=== PATIENT | female | born 1990 | race Caucasian/White ===

== ENCOUNTER 2016-04-29 21:21 | Emergency (ER) | payer SELFPAY ==
[~2016-04-29] VITALS: Ht 154.9 cm; Wt 61.5 kg
[~2016-04-29 21:21] MED LIST: CALCIUM500 M2 PO; CALCIUM500 M3 PO; COLACE100 MG PO; DAILY VITAMIN1 EAC8 PO; DEPO-PROVE150 MG/1 M IM; DEPO-PROVER150 MG/ML IM; DEPO-SUBQ104 MG/0.6 SC; FIORICET WI1 CAPSULE PO; FLEXERIL10 MG PO; FLEXERIL5 MG PO; IMITREX50 MG PO; INDOCIN25 MG PO; KEFLEX500 MG PO; LIDODERM 5% P1 PATCH TD; MEDROL DOSEPAK4 MG PO; MOBIC7.5 MG PO; MOTRIN800 MG PO; MUCINEX D ER T1 EACH PO; MULTIPLE VITAM1 EAC1 PO; MULTIVITAMIN1 EAC2 PO; NAPROSYN500 MG PO; NAPROXEN500 MG PO; NASONEX17 GM BOTH NARES; NORCO 5/3251 TABLET PO; PERCOCET 5/31 TABLET PO; PREDNISONE20 MG PO; PROMETHAZINE HC25 M1 PO; REGLAN10 MG PO; ULTRACET1 TABLET PO; ULTRAM50 MG PO; VALIUM5 MG PO; VALTREX50 MG/ML PO; ZOFRAN ODT4 MG PO; ZOFRAN4 MG PO
[2016-04-30 00:12] VITALS: BP 113/77
== END 2016-04-30 00:15 | disposition home or self-care (01) ==
LOC: EME → EDBD 21:21 → EME 04-30 00:15
DX: S06.0X1A Concussion with loss of consciousness of 30 minutes or less, initial encounter (principal); S16.1XXA Strain of muscle, fascia and tendon at neck level, initial encounter; M54.9 Dorsalgia, unspecified; Y08.89XA Assault by other specified means, initial encounter; Y07.410 Brother, perpetrator of maltreatment and neglect
CPT/HCPCS: 70450; 72125; 72128; 72131; 99281; 99285; J2270; J2405; J7030

== ENCOUNTER 2016-05-17 22:56 | Emergency (ER) | payer SELFPAY ==
[~2016-05-17] VITALS: Ht 167.6 cm; Wt 54.6 kg
[2016-05-18 00:45] LABS: QUANTITATIVE HCG < 4.0 MIU/ML
[2016-05-18 00:58] LABS: HEMATOCRIT 41.2 % (36.0-46.0); MCH 31.5 PG (29.0-34.0); MCHC 35.2 G/DL (30.0-36.0); MCV 89.6 FL (83-99); PLATELET COUNT 262 K/uL (156-360); RBC DIS.WIDTH-CV 12.4 % (11.8-14.6); RBC DIS.WIDTH-SD 39.8 % (39-53); WHITE BLOOD COUNT 8.4 K/uL (4.1-10.2)
[2016-05-18 01:00] LABS: CHLORIDE 105 mEq/L (99-109); POTASSIUM 3.8 mEq/L (3.7-5.4); SODIUM 137 mEq/L (136-147)
[2016-05-18 01:01] LABS: GLUCOSE 94 mg/dL (70-99)
[2016-05-18 01:03] LABS: ANION GAP 10 MEQ/L (2-14)
[2016-05-18 01:05] LABS: GFR ESTIMATE (CALCULATED) > 59 mL/min/
[2016-05-18 01:06] LABS: UREA NITROGEN (BUN) 15 mg/dL (9-23)
[2016-05-18 01:22] LABS: ADD MIUA? YES; BILIRUBIN NEGATIVE; BLOOD LARGE; COLOR YELLOW ((YELLOW)); GLUCOSE (STRIP) NEGATIVE; KETONES NEGATIVE; LEUKOCYTES MODERATE; NITRITE NEGATIVE; PROTEIN (STRIP) NEGATIVE; SPECIFIC GRAVITY 1.022 (1.000-1.030); UROBILINOGEN 0.2 MG/DL (0.2-1.0)
[2016-05-18 01:54] LABS: CASTS NONE SEEN /LPF; EPITHELIAL CELLS 4+; MUCUS NONE SEEN
[2016-05-18 01:55] LABS: BACTERIA 4+; CRYSTALS NONE SEEN; RED BLOOD CELLS 0-5 /HPF (0-5); UCUL ADDED? YES
[2016-05-18] MEDS ORDERED: PYRIDIUM100 MG PO (02:13)
[2016-05-18] MEDS ORDERED: NORCO 5/3251 TABLET PO (02:13)
[2016-05-18] MEDS ORDERED: CIPRO500 MG PO (02:13)
[2016-05-18 02:35] VITALS: BP 128/73
== END 2016-05-18 02:52 | disposition home or self-care (01) ==
LOC: EME 22:56
PROVIDERS: Emergency Medicine
DX: N30.01 Acute cystitis with hematuria (principal); M54.5 Low back pain
CPT/HCPCS: 74176; 80048; 81003; 84702; 85027; 87086; 99281; 99284

== ENCOUNTER 2016-06-27 12:29 | Emergency (ER) | payer SELFPAY ==
[~2016-06-27] VITALS: Ht 154.9 cm; Wt 55.5 kg
[~2016-06-27 12:29] MED LIST changes: +CIPRO500 MG PO; +PYRIDIUM100 MG PO
[2016-06-27 13:56] LABS: HEMATOCRIT 41.7 % (36.0-46.0); MCH 31.7 PG (29.0-34.0); MCHC 35.3 G/DL (30.0-36.0); MCV 90.1 FL (83-99); MEAN PLAT.VOLUME 10.1 uM^3 (9.5-12.4); PLATELET COUNT 246 K/uL (156-360); RBC DIS.WIDTH-CV 12.7 % (11.8-14.6); RBC DIS.WIDTH-SD 41.5 % (39-53); RED BLOOD COUNT 4.63 M/uL (3.80-5.20); WHITE BLOOD COUNT 7.5 K/uL (4.1-10.2)
[2016-06-27 14:09] LABS: CHLORIDE 109 mEq/L (99-109); SODIUM 139 mEq/L (136-147)
[2016-06-27 14:12] LABS: GLUCOSE 91 mg/dL (70-99)
[2016-06-27 14:13] LABS: ANION GAP 10 MEQ/L (2-14)
[2016-06-27 14:14] LABS: TOTAL BILIRUBIN 0.5 mg/dL (0.0-1.0)
[2016-06-27 14:15] LABS: ALKALINE PHOSPHATASE 46 IU/L (3-129); GFR ESTIMATE (CALCULATED) > 59 mL/min/
[2016-06-27 14:16] LABS: UREA NITROGEN (BUN) 15 mg/dL (9-23)
[2016-06-27 14:27] LABS: QUANTITATIVE HCG < 4.0 MIU/ML
[2016-06-27 14:57] LABS: LIPASE 14 U/L (1.0-51.0)
[2016-06-27 15:30] LABS: ADD MIUA? YES; BILIRUBIN NEGATIVE; BLOOD MODERATE; COLOR YELLOW ((YELLOW)); GLUCOSE (STRIP) NEGATIVE; KETONES 80; LEUKOCYTES NEGATIVE; NITRITE NEGATIVE; PROTEIN (STRIP) 30; SPECIFIC GRAVITY 1.038 (1.000-1.030); UROBILINOGEN 0.2 MG/DL (0.2-1.0)
[2016-06-27 15:35] LABS: BACTERIA RARE /HPF; EPITHELIAL CELLS 2+ /HPF; HYALINE CASTS 0-5 /LPF; MUCUS 4+ /LPF; RED BLOOD CELLS 0-5 /HPF (0-5); UCUL ADDED? NO; WHITE BLOOD CELLS 0-5 /HPF (0-5)
[2016-06-27] MEDS ORDERED: MOTRIN800 MG PO (18:30)
[2016-06-27] MEDS ORDERED: NORCO 7.5/321 TABLET PO (18:30)
[2016-06-27 19:00] VITALS: BP 126/76
== END 2016-06-27 19:01 | disposition home or self-care (01) ==
LOC: EME 12:29
DX: R10.2 Pelvic and perineal pain (principal); T21.12XA Burn of first degree of abdominal wall, initial encounter; X16.XXXA Contact with hot heating appliances, radiators and pipes, initial encounter; R30.0 Dysuria
CPT/HCPCS: 76856; 80053; 81003; 83690; 84702; 85027; 99281; 99284

== ENCOUNTER 2016-06-30 10:57 | Emergency (ER) | payer SELFPAY ==
[~2016-06-30] VITALS: Ht 154.9 cm; Wt 53.9 kg
[~2016-06-30 10:57] MED LIST changes: +NORCO 7.5/321 TABLET PO
[2016-06-30 11:37] LABS: HEMATOCRIT 42.9 % (36.0-46.0); MCH 31.3 PG (29.0-34.0); MCHC 34.3 G/DL (30.0-36.0); MCV 91.3 FL (83-99); MEAN PLAT.VOLUME 10.1 uM^3 (9.5-12.4); PLATELET COUNT 264 K/uL (156-360); RBC DIS.WIDTH-CV 12.3 % (11.8-14.6); RBC DIS.WIDTH-SD 41.3 % (39-53); WHITE BLOOD COUNT 9.5 K/uL (4.1-10.2)
[2016-06-30 11:45] LABS: CHLORIDE 108 mEq/L (99-109); POTASSIUM 3.8 mEq/L (3.7-5.4); SODIUM 141 mEq/L (136-147)
[2016-06-30 11:47] LABS: GLUCOSE 96 mg/dL (70-99)
[2016-06-30 11:49] LABS: ANION GAP 12 MEQ/L (2-14); TOTAL BILIRUBIN 0.4 mg/dL (0.0-1.0)
[2016-06-30 11:51] LABS: ALKALINE PHOSPHATASE 50 IU/L (3-129); GFR ESTIMATE (CALCULATED) > 59 mL/min/
[2016-06-30 11:52] LABS: UREA NITROGEN (BUN) 12 mg/dL (9-23)
[2016-06-30 12:01] LABS: QUANTITATIVE HCG < 4.0 MIU/ML
[2016-06-30] MEDS ORDERED: VALTREX1000 MG PO (12:54)
[2016-06-30 13:17] LABS: ADD MIUA? YES; BILIRUBIN NEGATIVE; BLOOD MODERATE; COLOR AMBER ((YELLOW)); GLUCOSE (STRIP) NEGATIVE; KETONES 5; LEUKOCYTES TRACE; NITRITE NEGATIVE; PROTEIN (STRIP) 100; SPECIFIC GRAVITY 1.035 (1.000-1.030); UROBILINOGEN 0.2 MG/DL (0.2-1.0)
[2016-06-30 14:02] LABS: BACTERIA 2+ /HPF; EPITHELIAL CELLS 2+ /HPF; MUCUS NONE SEEN /LPF; UCUL ADDED? YES
[2016-06-30] MEDS ORDERED: MACROBID100 MG PO (14:26)
[2016-06-30] MEDS ORDERED: PYRIDIUM100 MG PO (14:26)
[2016-06-30 14:33] VITALS: BP 118/66
[2016-06-30] MEDS ORDERED: BENTYL20 MG PO (14:46)
== END 2016-06-30 14:34 | disposition home or self-care (01) ==
LOC: EME 10:57
DX: N39.0 Urinary tract infection, site not specified (principal); R10.32 Left lower quadrant pain; R11.0 Nausea; R19.7 Diarrhea, unspecified
CPT/HCPCS: 74020; 80053; 81003; 84702; 85027; 87086; 99281; 99284

== ENCOUNTER 2016-07-14 15:00 | Emergency (ER) | payer SELFPAY ==
[~2016-07-14] VITALS: Ht 152.4 cm; Wt 54.5 kg
[~2016-07-14 15:00] MED LIST changes: +BENTYL20 MG PO; +MACROBID100 MG PO; +VALTREX1000 MG PO
[2016-07-14] MEDS ORDERED: ULTRAM50 MG PO (16:45)
[2016-07-14 16:58] VITALS: BP 124/83
== END 2016-07-14 16:58 | disposition home or self-care (01) ==
LOC: EME 15:00
DX: K08.89 Other specified disorders of teeth and supporting structures (principal)
CPT/HCPCS: 99281; 99284

== ENCOUNTER 2016-07-20 17:33 | Emergency (ER) | payer SELFPAY ==
[~2016-07-20] VITALS: Ht 154.9 cm; Wt 54.0 kg
[2016-07-20] MEDS ORDERED: ULTRAM50 MG PO (18:23)
[2016-07-20] MEDS ORDERED: NAPROSYN500 MG PO (18:23)
[2016-07-20 18:29] VITALS: BP 113/78
== END 2016-07-20 18:45 | disposition home or self-care (01) ==
LOC: EME 17:33
DX: K08.89 Other specified disorders of teeth and supporting structures (principal)
CPT/HCPCS: 99281; 99284

== ENCOUNTER 2016-11-08 11:29 | Emergency (ER) | payer SELFPAY ==
[~2016-11-08] VITALS: Ht 154.9 cm; Wt 52.8 kg
[2016-11-08] MEDS ORDERED: PREDNISONE20 MG PO (13:38)
[2016-11-08] MEDS ORDERED: FLEXERIL10 MG PO (15:12)
[2016-11-08 15:33] VITALS: BP 97/74
== END 2016-11-08 15:36 | disposition home or self-care (01) ==
LOC: EME 11:29
DX: M62.838 Other muscle spasm (principal)
CPT/HCPCS: 72040; 99281; 99284; J3360; J7512

== ENCOUNTER 2016-11-21 15:25 | Emergency (ER) | payer SELFPAY ==
[~2016-11-21] VITALS: Ht 154.9 cm; Wt 538.0 kg
[2016-11-21 16:00] LABS: ADD MIUA? YES; BILIRUBIN NEGATIVE; BLOOD MODERATE; COLOR YELLOW ((YELLOW)); GLUCOSE (STRIP) NEGATIVE; KETONES NEGATIVE; LEUKOCYTES LARGE; NITRITE POSITIVE; PROTEIN (STRIP) 100; SPECIFIC GRAVITY 1.013 (1.000-1.030); UROBILINOGEN 0.2 MG/DL (0.2-1.0)
[2016-11-21 16:06] LABS: BACTERIA RARE /HPF; EPITHELIAL CELLS RARE /HPF; MUCUS TRACE /LPF; RED BLOOD CELLS TNTC /HPF (0-5); UCUL ADDED? YES; WHITE BLOOD CELLS TNTC /HPF (0-5)
[2016-11-21 16:49] LABS: HEMATOCRIT 42.2 % (36.0-46.0); MCH 31.5 PG (29.0-34.0); MCHC 34.8 G/DL (30.0-36.0); MCV 90.4 FL (83-99); MEAN PLAT.VOLUME 9.7 uM^3 (9.5-12.4); PLATELET COUNT 202 K/uL (156-360); RBC DIS.WIDTH-CV 11.9 % (11.8-14.6); RBC DIS.WIDTH-SD 39.8 % (39-53); RED BLOOD COUNT 4.67 M/uL (3.80-5.20); WHITE BLOOD COUNT 10.1 K/uL (4.1-10.2)
[2016-11-21 16:56] LABS: CHLORIDE 105 mEq/L (99-109); POTASSIUM 4.1 mEq/L (3.7-5.4); SODIUM 138 mEq/L (136-147)
[2016-11-21 16:58] LABS: GLUCOSE 111 mg/dL (70-99)
[2016-11-21 17:00] LABS: ANION GAP 7 MEQ/L (2-14); TOTAL BILIRUBIN 0.5 mg/dL (0.0-1.0)
[2016-11-21 17:02] LABS: ALKALINE PHOSPHATASE 58 IU/L (3-129); GFR ESTIMATE (CALCULATED) > 59 mL/min/
[2016-11-21 17:03] LABS: UREA NITROGEN (BUN) 8 mg/dL (9-23)
[2016-11-21 17:05] LABS: LIPASE 10 U/L (1.0-51.0)
[2016-11-21 17:12] LABS: QUANTITATIVE HCG < 4.0 MIU/ML
[2016-11-21] MEDS ORDERED: BACTRIM,SEPT1 TABLET PO (18:40)
[2016-11-21] MEDS ORDERED: TRAMADOL HCL50 MG PO (18:40)
[2016-11-21 19:15] VITALS: BP 118/75
== END 2016-11-21 19:15 | disposition home or self-care (01) ==
LOC: EME 15:25 → RME 15:25
PROVIDERS: Physician Assistant
DX: N10 Acute pyelonephritis (principal)
CPT/HCPCS: 74176; 80053; 81003; 83690; 84702; 85027; 87077; 87086; 87186; 99281; 99284; J0696; J1885

== ENCOUNTER 2016-12-31 11:40 | Emergency (ER) | payer SELFPAY ==
[~2016-12-31] VITALS: Ht 154.9 cm; Wt 55.0 kg
[~2016-12-31 11:40] MED LIST changes: +BACTRIM,SEPT1 TABLET PO; +TRAMADOL HCL50 MG PO
[2016-12-31] MEDS ORDERED: NAPROSYN500 MG PO (14:33)
[2016-12-31 14:43] VITALS: BP 114/86
== END 2016-12-31 14:47 | disposition home or self-care (01) ==
LOC: EME 11:40
DX: M65.842 Other synovitis and tenosynovitis, left hand (principal)
CPT/HCPCS: 73140; 99281; 99283

== ENCOUNTER 2017-07-10 17:33 | Emergency (ER) | payer SELFPAY ==
[~2017-07-10] VITALS: Ht 154.9 cm; Wt 58.8 kg
[2017-07-10] MEDS ORDERED: BACTROBAN OINTM22 GM TP (19:26)
[2017-07-10] MEDS ORDERED: AUGMENTIN875 MG PO (19:26)
[2017-07-10 19:41] VITALS: BP 125/83
== END 2017-07-10 19:28 | disposition home or self-care (01) ==
LOC: EME 17:33
DX: I88.9 Nonspecific lymphadenitis, unspecified (principal); L73.9 Follicular disorder, unspecified
CPT/HCPCS: 99281; 99283